=== PATIENT | female | born 1985 | race Caucasian/White ===

== ENCOUNTER → 2024-06-15 | Outpatient (CLI) | payer MEDICAID, SELFPAY ==
--- NOTE | 2024-06-15 11:00 | XR_ITS ---
Examination: Breast ultrasound, unilateral, right complete Date and time of exam: June 15, 2024 1124 hours INDICATIONS: Right breast sonogram May 24, 2024 10:00 nodule 10 x 16 mm, family history breast cancer Technique: Real-time so scale ultrasonographic imaging performed right breast including all 4 quadrants as well as nipple retroareolar and axillary region. Findings: 9:00 cyst 6 x 4 x 5 mm 10:00 oval mass partially indistinct margins, 16 x 14 x 23 mm IMPRESSION: BI-RADS Category 4: Suspicious for malignancy Suspicious mass 10:00 position left breast, biopsy is needed to exclude breast carcinoma, this mass is amenable to ultrasound-guided breast biopsy for diagnosis
--- NOTE | 2024-06-15 11:30 | XR_ITS ---
Examination: Diagnostic digital mammography, bilateral Computer aided detection 3-D breast Tomosynthesis, bilateral Date and time of exam: June 15, 2024 1136 hours INDICATIONS: Right breast pain beginning 2 months ago Technique: Nonmagnified MLO, CC views of the breasts to been obtained, reconstructed from 3-D Tomosynthesis images. R2 computer aided detection program utilized for evaluation of suspicious masses and/or abnormal calcifications. 3-D Tomosynthesis images obtained. Findings: The breasts are heterogeneously dense, which may obscure small masses Right breast 10:00 lobular mass with indistinct margins, 17 mm, corresponding to suspicious mass on right breast sonogram today 4 mm circumscribed nodule posterior depth left breast nipple level Impression: BI-RADS Category 4: Suspicious for malignancy Suspicious mass 10:00 position right breast, biopsy is needed to exclude breast carcinoma This mass is amenable to ultrasound-guided breast biopsy for diagnosis Recommend follow-up spot tomographic views of 4 mm nodule posterior depth left breast nipple level as well as left breast sonography to complete the workup.
== END | disposition home or self-care (01) ==
PROVIDERS: Referring Provider Family Medicine; Visit Provider Family Medicine
DX: R92.341 Mammographic extreme density, right breast (principal); N63.11 Unspecified lump in the right breast, upper outer quadrant; R92.8 Other abnormal and inconclusive findings on diagnostic imaging of breast
CPT/HCPCS: 76641; 77062; 77066; G0279

== ENCOUNTER → 2024-07-25 | Outpatient (CLI) | payer MEDICAID, SELFPAY ==
--- NOTE | 2024-07-25 14:45 | XR_ITS ---
Examination: Breast ultrasound, unilateral, left complete Date and time of exam: July 25, 2024 1541 hours INDICATIONS: Mammogram June 15, 2024 4 mm circumscribed nodule posterior depth left breast nipple level, family history breast cancer Technique: Real-time so scale ultrasonographic imaging performed left breast including all 4 quadrants as well as nipple retroareolar and axillary region. Findings: 2:00 oval mass circumscribed 10 x 12 mm 10:00 cyst 5 x 4 mm Retroareolar cyst 7 x 6 mm retroareolar cyst 6 x 4 mm IMPRESSION: BI-RADS Category 3: Probably benign findings One additional 6 month breast follow-up is needed to document stability of 2:00 nodule left breast
== END | disposition home or self-care (01) ==
PROVIDERS: PCP Surgery; Referring Provider Surgery; Visit Provider Surgery
DX: N63.21 Unspecified lump in the left breast, upper outer quadrant (principal)
CPT/HCPCS: 76641

== ENCOUNTER 2024-07-31 15:22 | Emergency (ER) | payer MEDICAID, SELFPAY ==
[2024-07-31 15:24] VITALS: BMI 27.3
[2024-07-31 15:59] VITALS: BP 144/98; PULSE 104; RESP 18; TEMP 36.8; O2SAT 99
--- NOTE | 2024-07-31 16:03 | XR_ITS ---
Examination: PA lateral chest 2 views Technique 1. PA lateral chest 2 views Standing kind quadrant July 31, 2024 1629 hours Comparison May 28, 2020. INDICATIONS: Shortness of breath beginning 2 days ago. FINDINGS: Normal heart size. Lungs are clear. The osseous structures are intact. IMPRESSION: No active disease.
--- NOTE | 2024-07-31 16:03 | EKG_ITS ---
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
--- NOTE | 2024-07-31 16:03 | XR_ITS ---
Examination: CT brain head without contrast. 2-D sagittal coronal reconstructions Date and time of exam:July 31, 2024 at 1710 hours Comparison February 25, 2017. INDICATIONS: Onset headaches and dizziness today CTDI: vol (mGy):49.1 DLP: (mGycm):921 Technique: Multiple CT axial sections of the brain have been obtained, 5 mm slice thickness. Contrast has not been administered. 2-D sagittal, coronal reconstructions have been obtained Low dose protocols were performed. One or more of the following dose reduction techniques were used; automated exposure control, adjustment of the mA and/or KV according to patient size, use of iterative reconstruction technique. Findings: No significant ventricular enlargement. Intra-axial or extra-axial hemorrhage density is not seen. No mass effect or midline shift Basal cisterns are not remarkable. Fourth ventricle is midline. Cranial vault intact. Impression: Negative for acute hemorrhage, mass effect or midline shift Acute right sphenoid sinusitis Advise clinical correlation and follow up accordingly
--- NOTE | 2024-07-31 16:04 | PD.EDRME ---
Rapid Medical Screening Exam RME Arrival date/time: 07/31/24 15:22 39-year-old female presents emergency department complains of dizziness and elevated blood pressure today Chief Complaint: Dizziness Vital signs: Vital Signs Temperature 98.2 F 07/31/24 15:59 Pulse Rate 104 H 07/31/24 15:59 Respiratory Rate 18 07/31/24 15:59 Blood Pressure 144/98 H 07/31/24 15:59 Pulse Oximetry (%) 99 07/31/24 15:59 Oxygen Delivery Method Room Air 07/31/24 15:59
[2024-07-31 16:41] LABS: Basophils % (Auto) 1 % (0-2.5); Eosinophils # (Auto) 0.2 Thou/mm3 (0.0-0.5); Eosinophils % (Auto) 2 % (0-10); Hematocrit 43.6 % (36.0-46.0); Hemoglobin 14.5 g/dL (12.0-16.0); Immature Granulocytes % (Auto) 0 % (0-0); Immature Granulocytes Auto 0.02 Thou/mm3 (0.00-0.00); Lymphocytes # (Auto) 2.6 Thou/mm3 (1.0-4.8); Lymphocytes % (Auto) 29 % (10-50); Mean Corpuscular HGB Conc 33.3 g/dl (31.0-37.0); Mean Corpuscular Hemoglobin 27.1 pg (25.0-35.0); Mean Corpuscular Volume 81 fL (80-100); Monocytes # (Auto) 0.4 Thou/mm3 (0.0-0.8); Monocytes % (Auto) 5 % (0-12); Neutrophils # (Auto) 5.6 Thou/mm3 (1.8-7.7); Neutrophils % (Auto) 63 % (37-80); Nucleated Red Blood Cell % 0 /100 WBC (0); Platelet Count 399 Thou/mm3 (140-440); RDW Standard Deviation 41.4 fL (36.4-46.3); Red Blood Count 5.36 Miln/mm3 (4.00-5.20); White Blood Count 8.9 Thou/mm3 (3.6-11.0)
[2024-07-31 17:13] LABS: Alanine Aminotransferase 11 U/L (10-49); Albumin, Serum 4.2 gm/dL (3.5-5.0); Albumin/Globulin Ratio 1.2 (1.2-2.2); Alkaline Phosphatase 85 U/L (46-116); Anion Gap 8 (7-16); Aspartate Amino Transferase 11 U/L (0-34); BUN/Creatinine Ratio 15 Ratio (12-20); Bilirubin,Total 0.9 mg/dL (0.3-1.2); Blood Urea Nitrogen 17 mg/dL (9-23); Calcium 9.1 mg/dL (8.3-10.6); Calcium (Corrected) 9.1 mg/dL (8.5-10.1); Carbon Dioxide 24.9 mMol/L (20.0-31.0); Chloride 104 mMol/L (98-107); Creatinine (Component) 1.1 mg/dL (0.6-1.3); Globulin 3.5 gm/dL (2.3-3.5); Glucose 110 mg/dL (74-106); Osmolality,Calculated 276 (275-295); Potassium 3.8 mMol/L (3.4-5.1); Sodium 137 mMol/L (136-145); Total Protein 7.7 gm/dL (5.7-8.2); Troponin I < 0.020 ng/mL (0.0-0.045); eGFR > 60 See Note
--- NOTE | 2024-07-31 22:27 | PC.NURSE ---
STAFF CALLED PATIENT IN LOBBY AND OUTSIDE, NO ANSWER RECEIVED.
--- NOTE | 2024-07-31 22:57 | PC.NURSE ---
CALLED PATIENT IN THE LOBBY AND OUTSIDE, NO ANSWER RECEIVED.
--- NOTE | 2024-07-31 23:40 | PC.NURSE ---
PT CALLED BACK FROM LOBBY NO ANSWER
== END 2024-08-01 09:13 | disposition left against medical advice (07) ==
PROVIDERS: Nurse Practitioner Primary Care; Emergency Provider Emergency Medicine; PCP Physician Assistant Medical
DX: R42 Dizziness and giddiness (principal); Z53.29 Procedure and treatment not carried out because of patient's decision for other reasons
CPT/HCPCS: 36415; 70450; 71046; 80053; 80307; 84484; 85025; 99281

== ENCOUNTER 2025-06-19 22:43 | Emergency (ER) | payer MEDICAID, SELFPAY ==
[2025-06-19 22:44] VITALS: BMI 28.1
--- NOTE | 2025-06-19 22:46 | EKG_ITS ---
[facility] Test Date: 2025-06-19 Pat Name: KAIT NARAYAN Department: Room: - Gender: Female P[employer]: : 1985 Requested By: ED Temporary Provider Order Number: [id number] Reading MD: ED Temporary Provider Measurements Intervals [place] Rate: 86 P: 74 RI: 145 QRS: 57 QRSD: 97 T: 105 QT: 396 QTc: 475 Interpretive Statements SINUS RHYTHM POSSIBLE LEFT ATRIAL ENLARGEMENT [-0.1mV P-WAVE IN V1/V2] MODERATE T-WAVE ABNORMALITY, CONSIDER ANTEROLATERAL ISCHEMIA [-0.1+ mV T-WAVE IN V3-V6] Compared to ECG 07/31/2024 16:05:57 T-wave abnormality now present Possible ischemia now present /store/S0/[id number].pdf
[2025-06-19 22:56] VITALS: BP 133/93; PULSE 86; RESP 18; TEMP 37.2; O2SAT 98
--- NOTE | 2025-06-19 23:03 | EDNOTE_ITS ---
ED General RME/HPI General Chief complaint: General Adult/Misc Complain Stated complaint: LOW BP SINCE YESTERDAY, VOMITING, FAST HR Time Seen by Provider: 06/19/25 23:02 Arrival date/time: 06/19/25 22:43 40-year-old female with a history of hypertension on losartan daily reports with complaints of having a low blood pressure vomiting and elevated heart rate. Patient denies any fever chills cough congestion chest pain nausea vomiting shortness of breath weakness or fatigue. Limitations: no limitations Related Data Previous Rx's ?Medication ?Instructions ?Recorded clindamycin HCl 300 mg capsule 300 mg PO QID #28 caps 04/16/21 Allergies Allergy/AdvReac Type Severity Reaction Status Date / Time lorazepam Allergy Severe Rash Verified 06/19/25 22:44 hydrocodone AdvReac Severe VOMITING Verified 06/19/25 22:44 Review of Systems Constitutional Constitutional: Denies chills and Denies fever(s) Cardiovascular Cardiovascular: Denies chest pain, Denies dyspnea and Denies syncope Respiratory Respiratory: Denies cough and Denies dyspnea Gastrointestinal Gastrointestinal: Denies abdominal pain, Reports nausea and Denies vomiting Genitourinary Genitourinary: Denies abnormal menses, Denies dysuria and Denies urinary urgency Musculoskeletal Musculoskeletal: Denies back pain and Denies myalgias Integumentary/Breasts Skin/Breast: Denies lesions and Denies sores Neurologic Neurologic: Denies convulsions and Denies syncope Past Medical History Past Medical History CARDIAC: Negative Cardiac Disorders or Congestive Heart Failure RESPIRATORY: Negative Chronic Obstructive Pulmonary Disease (COPD) or Asthma GENITOURINARY: Negative Renal Disease ENDOCRINE: Negative Diabetes Mellitus Type 1 or Diabetes Mellitus Type 2 HEMATOLOGIC: Negative Sickle Cell Disease Surgical History SURGICAL: Positive Tubal Ligation (bilateral) Social History SMOKING STATUS: Current every day smoker ED Exam General Limitations: Present no limitations General appearance: Present alert and in no apparent distress Head Head exam: Present atraumatic Eye Eye exam: Present normal appearance, PERRL and EOMI ENT ENT exam: Present normal exam, normal oropharynx and mucous membranes moist Neck Neck exam: Present normal inspection, full ROM and trachea midline Chest Chest inspection: Present normal inspection and symmetric chest wall rise Respiratory Respiratory exam: Present normal lung sounds bilaterally Cardiovascular Cardiovascular exam: Present regular rate, normal rhythm and normal heart sounds Abdominal Exam Abdominal exam: Present soft and normal bowel sounds Extremities Exam Extremities exam: Present normal inspection and full ROM Back Exam Back exam: Present normal inspection and full ROM Neurological Exam Neurological exam: Present alert, oriented X3 and CN II-XII intact Psychiatric Psychiatric exam: Present normal affect and normal mood Skin Skin exam: Present warm, dry, intact and normal color Course Course Course Narrative: A 40-year-old female with a history of hypertension presents with complaints of low blood pressure, elevated heart rate, and vomiting for the past day. Upon examination, her vital signs are within normal limits, and the EKG shows normal sinus rhythm with no evidence of STEMI or ischemic changes. The patient appears stable and non-toxic, with stable vitals. The differential diagnosis includes viral syndrome, dehydration, and anxiety. She was administered Zofran for nausea and will be discharged home with instructions for a follow-up appointment with her primary care provider. Quality Measures none Orders Category Date Time Status EKG (ED ONLY) *Do not use* NOW Care 06/19/25 22:46 Completed EKG (ED Only) Stat Exams 06/19/25 22:46 Draft Ondansetron Odt [Zofran Odt] Med 06/19/25 23:02 Discontinued 4 mg PO X1 ONE Vital Signs Vital signs: Vital Signs Temperature 99 F 06/19/25 22:56 Pulse Rate 86 06/19/25 22:56 Respiratory Rate 18 06/19/25 22:56 Blood Pressure 133/93 H 06/19/25 22:56 Pulse Oximetry (%) 98 06/19/25 22:56 Oxygen Delivery Method Room Air 06/19/25 22:56 PROCEDURES: EKG Interpretation #1: EKG Impression: Normal sinus rhythm, No acute ST-T changes and No ischemic changes Discharge Plan Plan Patient Disposition: HOME (Self Care) Prescriptions/Referrals Prescriptions/Med Rec: No Action clindamycin HCl 300 mg capsule 300 mg PO QID Qty: 28 0RF Referrals: No Primary/Family,Physician [Primary Care Provider] - In 1 week Problem List Clinical Impression: Nausea Patient/Caregiver Discharge Instructions Discharge Activity: activity as tolerated Education Materials: Nausea Vomit Control-Cancer Care Print Language: Setswana Stand Alone Forms: Maryellen Award Info., Patient Portal Info Letter MDM Medication Administration(s) Medication Administration History Discontinued Medications Ondansetron HCl (Ondansetron Odt 4 Mg Tabrap) 4 mg PO X1 ONE; Protocol Stop: 06/19/25 23:03 Last Admin: 06/19/25 23:13 Dose: 4 mg Documented By: HAYES
[2025-06-19] MEDS: ONDANSETRON ODT 4 MG TABRAP PO (23:13)
== END 2025-06-19 23:38 | disposition home or self-care (01) ==
PROVIDERS: Emergency Provider Emergency Medicine; PCP Family Medicine
DX: R11.2 Nausea with vomiting, unspecified (principal); R94.31 Abnormal electrocardiogram [ECG] [EKG]; I10 Essential (primary) hypertension; F17.210 Nicotine dependence, cigarettes, uncomplicated
CPT/HCPCS: 93005; 99282; Q0162

== ENCOUNTER → 2025-06-28 | Outpatient (CLI) | payer MEDICAID, SELFPAY ==
--- NOTE | 2025-06-28 14:29 | XR_ITS ---
Examination: Wrist, left 3 views Technique: Wrist AP, oblique, lateral 3 views Date and time of exam: June 28, 2025, 1437 hours INDICATION: Patient fell today with injury to the wrist, wrist pain. FINDINGS: Very minimal angulation of the cortex of the distal radius on the oblique view No foreign body No dislocation IMPRESSION: Recommend 1 to 2-day follow-up wrist films to exclude nondisplaced torus fracture distal radius
== END | disposition home or self-care (01) ==
PROVIDERS: PCP Family Medicine; Referring Provider Family Medicine; Visit Provider Family Medicine
DX: S52.522A Torus fracture of lower end of left radius, initial encounter for closed fracture (principal); W19.XXXA Unspecified fall, initial encounter
CPT/HCPCS: 73110